=== PATIENT | male | born 1940 | race Caucasian/White ===

== ENCOUNTER → 2017-07-06 | Outpatient (CLI) | payer MEDICARE, MEDICAID ==
[~2017-07-06] VITALS: Ht 175.3 cm; Wt 82.1 kg
[~2017-07-06] MED LIST: ASPIRIN 81M81 MG/TA2 PO; CELEBREX 1100 MG/CAP PO; DIOVAN 80MG80 MG PO; LEVOXYL0.075 MG PO; NEURONTIN300 MG/CAP PO; NORVASC 5MG5 MG/TAB PO; ZOCOR 10MG10 MG PO
[2017-07-06 12:45] VITALS: BP 152/98; PULSE 73
[2017-07-06 13:44] VITALS: BP 170/110; PULSE 73
== END ==
LOC: COL.RAD 06-29 07:00
DX: M48.02 Spinal stenosis, cervical region (principal); R20.2 Paresthesia of skin; R93.8 Abnormal findings on diagnostic imaging of other specified body structures; I10 Essential (primary) hypertension; R09.89 Other specified symptoms and signs involving the circulatory and respiratory systems; Z87.891 Personal history of nicotine dependence
CPT/HCPCS: J1100; Q9965